=== PATIENT | male | born 1950 | race Caucasian/White ===

== ENCOUNTER 2022-09-15 19:46 | Inpatient (IN) ==
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
[2022-09-15 20:39] LABS: Basophils # (auto) 0.04 K/uL (0-0.2); Basophils % (auto) 0.4 %; Eosinophils # (auto) 0.09 K/uL (0-0.50); Eosinophils % (auto) 0.8 %; Hematocrit (blood only) 35.2 % (42.0-52.0); Hemoglobin 11.5 g/dl (14.0-18.0); Immature Granulocytes # (auto) 0.15 K/uL (0.01-0.20); Immature Granulocytes % (auto) 1.3 %; Lymphocytes # (auto) 0.67 K/uL (1.2-3.4); Mean Corpuscular Hemoglobin 24.7 pg (25.0-34.0); Mean Corpuscular Hgb Conc 32.7 g/dL (32.0-36.0); Mean Corpuscular Volume 75.5 fL (80.0-100.0); Mean Platelet Volume 9.8 fL (9.4-12.4); Monocytes # (auto) 1.02 K/uL (0.11-0.59); Monocytes % (auto) 9.1 %; Neutrophils # (auto) 9.27 K/uL (1.40-6.50); Neutrophils % (auto) 82.4 %; Platelet Count 183 K/uL (130-400); RDW Coefficient of Variation 19.5 % (11.5-14.5); Red Blood Count 4.66 M/uL (4.70-6.10); White Blood Count 11.24 K/ul (4.8-10.8)
[2022-09-15 20:42] LABS: Appearance Urine Clear (Clear); Bilirubin Urine Negative (Negative); Blood Urine Negative (Negative); Color Urine Yellow; Glucose Urine UA 1+ (Negative); Ketones Urine Negative (Negative); Leukocyte Esterase Urine Negative (Negative); Nitrite Urine Negative (Negative); Protein Urine Negative (Negative); Specific Gravity Urine 1.007 (1.000-1.030); Urobilinogen Urine Negative (Negative); pH Urine 7.5 (4.5-7.5)
[2022-09-15 20:53] LABS: Albumin Level 4.1 gm/dl (3.4-5.0); BUN Creatinine Ratio 20.6 (10-20); Bilirubin,Total 1.5 mg/dl (0.2-1.0); Calcium 8.9 mg/dl (8.5-10.1); Creatinine Clr Calc Pharmacy 44.2 ml/min; Est GFR (African American) 44.7 ml/min; Est GFR (Non-African American) 38.6 ml/min; Globulin 4.1 gm/dl (2.5-4.0); Potassium 2.3 mmol/L (3.5-5.1); Total Protein 8.2 gm/dl (6.0-8.3)
--- NOTE | 2022-09-15 20:56 | XRay Report ---
XR chest 1V portable CLINICAL HISTORY: Chest pain. COMPARISON STUDY: No previous studies for comparison. FINDINGS: A left subclavian biventricular pacer/AICD is in place. Status post median sternotomy. Mode rate cardiomegaly. Small right and trace left pleural effusions. There is no pneumothorax. Interstiti al pulmonary edema is noted. Hazy right basilar opacity is present. IMPRESSION: 1. Interstitial pulmonary edema with small right and trace left pleural effusions. Hazy right basilar opacity likely reflects atelectasis. Radiographic follow-up to ensure resolution is recommended. 2. Cardiomegaly. ACT 112: Negative or not required by law. Electronically signed by: Niles West M.D. 09/15/2022 8:54 PM
[2022-09-15] MEDS ORDERED: POTASSIUM CHLORIDE / WTR 10 MEQ/100 ML PLCT IV ONE ×2 (20:57→21:28)
[2022-09-15] MEDS ORDERED: POTASSIUM CHLORIDE CRTAB 20 MEQ TABCR PO STA (20:57)
[2022-09-15] MEDS ORDERED: MAGNESIUM SULFATE / D5W 1 GM/100 ML BAG IV STA (21:16)
[2022-09-15] MEDS ORDERED: MAGNESIUM SULFATE / D5W 1 GM/100 ML BAG IV ONE (21:16)
[2022-09-15] MEDS ORDERED: ASPIRIN CHEW 324 MG PO STA (21:16)
[2022-09-15] MEDS ORDERED: STAT IV Infusion **Titration per Protocol STA (21:38)
[2022-09-15] MEDS ORDERED: 0.2 MICRON FILTER SET 1 EACH IV STA (21:38)
[2022-09-15] MEDS ORDERED: AMIODARONE IV BOLUS & DRIP IV STA (21:38)
[2022-09-15] MEDS ORDERED: AMIODARONE / D5W 150 MG/100 ML BAG IV STA (21:38)
[2022-09-15] MEDS ORDERED: AMIODARONE / D5W 360 MG/200 ML BAG IV ONE (21:48)
[2022-09-15] MEDS ORDERED: POTASSIUM CHLORIDE CRTAB 20 MEQ TABCR PO ONE (22:00)
[2022-09-15 22:05] LABS: Magnesium 2.3 mg/dl (1.7-2.4); Troponin I High Sensitivity 30.8 pg/ml (0-20)
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
[2022-09-15 22:13] LABS: INR 3.2 (0.9-1.1)
[2022-09-15] MEDS ORDERED: GLUCOSE 40% GEL 15 GM TUBE PO PRN (23:29)
[2022-09-15] MEDS ORDERED: CARBOHYDRATES FOR HYPOGLYCEMIA PO PRN (23:29)
[2022-09-15] MEDS ORDERED: GLUCOSE 10 TAB/TUBE PO PRN (23:29)
[2022-09-15] MEDS ORDERED: PROMETHAZINE HCL 12.5 MG in SODIUM CHLORIDE 0.9% 50 ML IV PRN (23:29)
[2022-09-15] MEDS ORDERED: DEXTROSE 50% 50 ML SYRINGE IV PRN (23:29)
[2022-09-15] MEDS ORDERED: HYDROCODONE/ACETAMOPHEN 5/325MG TAB PO PRN (23:29)
[2022-09-15] MEDS ORDERED: GLUCAGON FOR INJ 1 MG VIAL SQ PRN (23:29)
[2022-09-16] MEDS ORDERED: POTASSIUM CHLORIDE CRTAB 20 MEQ TABCR PO ONE
[2022-09-16] MEDS: POTASSIUM CHLORIDE / WTR 10 MEQ/100 ML PLCT IV SCH ×8 (00:06→09:20)
[2022-09-16] MEDS: INSULIN ASPART PER UNIT SC SCH ×5 (00:23→20:13)
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
[2022-09-16] MEDS: ACETAMINOPHEN 325 MG TAB PO PRN ×3 (03:07→20:19)
[2022-09-16] MEDS: AMIODARONE / D5W 360 MG/200 ML BAG IV SCH ×2 (03:58→15:57)
[2022-09-16 04:49] LABS: Basophils # (auto) 0.02 K/uL (0-0.2); Basophils % (auto) 0.2 %; Eosinophils # (auto) 0.02 K/uL (0-0.50); Eosinophils % (auto) 0.2 %; Hematocrit (blood only) 32.6 % (42.0-52.0); Hemoglobin 10.5 g/dl (14.0-18.0); Immature Granulocytes # (auto) 0.09 K/uL (0.01-0.20); Immature Granulocytes % (auto) 0.9 %; Lymphocytes # (auto) 0.76 K/uL (1.2-3.4); Lymphocytes % (auto) 7.3 %; Mean Corpuscular Hemoglobin 24.4 pg (25.0-34.0); Mean Corpuscular Hgb Conc 32.2 g/dL (32.0-36.0); Mean Corpuscular Volume 75.8 fL (80.0-100.0); Mean Platelet Volume 9.9 fL (9.4-12.4); Monocytes # (auto) 0.92 K/uL (0.11-0.59); Monocytes % (auto) 8.8 %; Neutrophils % (auto) 82.6 %; Platelet Count 160 K/uL (130-400); RDW Coefficient of Variation 19.4 % (11.5-14.5); RDW Standard Deviation 52.9 fL (36.4-46.3); White Blood Count 10.41 K/ul (4.8-10.8)
[2022-09-16 05:11] LABS: BUN Creatinine Ratio 18.2 (10-20); Calcium 8.3 mg/dl (8.5-10.1); Creatinine Clr Calc Pharmacy 43.1 ml/min; Est GFR (African American) 44.4 ml/min; Est GFR (Non-African American) 38.3 ml/min; Magnesium 2.5 mg/dl (1.7-2.4); Potassium 3.2 mmol/L (3.5-5.1)
[2022-09-16] MEDS ORDERED: POTASSIUM CHLORIDE 20 MEQ/15 ML UDC PO STA (05:21)
[2022-09-16 05:33] LABS: INR 3.5 (0.9-1.1); Prothrombin Time 34.9 Seconds (9.0-12.0)
[2022-09-16] MEDS: LEVOTHYROXINE SODIUM 100 MCG TABLET PO SCH (05:48)
--- NOTE | 2022-09-16 06:55 | CT Scan Report ---
CT SCAN OF THE BRAIN WITHOUT IV CONTRAST CLINICAL HISTORY: Headache. Seizure. COMPARISON STUDY: No priors. TECHNIQUE: Unenhanced axial CT scan of the brain is performed from the vertex to the skull base. A do se lowering technique was utilized adhering to the principles of ALARA. CT DOSE: 972.49 mGy.cm FINDINGS: Brain parenchyma: There is age-related involutional change noting mild subcortical and periventricula r microangiopathic disease. 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 There is no he morrhage, mass effect, or evidence of acute territorial ischemia by CT criteria. Briones-white matter di fferentiation is preserved. No extra-axial fluid collection is seen. Ventricles, sulci, cisterns: Prominent secondary to involutional change. Intracranial vasculature: There is atherosclerotic calcification of the cavernous carotid and vertebr al arteries. Calvarium: Unremarkable. Sinuses and mastoids: There is mild mucosal thickening in the left maxillary antrum. The remaining pa ranasal sinuses are clear. The mastoid air cells are well pneumatized. Orbits: The bony orbits are grossly intact. There are bilateral ocular lens implants. IMPRESSION: There is no hemorrhage, mass effect, or evidence of acute territorial ischemia by CT rebeca carrion. ACT 112: Negative or not required by law. Electronically signed by: Rolando Mendez M.D. 09/16/2022 6:54 AM
[2022-09-16] MEDS: METOPROLOL SUCC 50MG EXT REL TAB PO SCH (08:15)
[2022-09-16] MEDS: ASPIRIN 81 MG ECTAB PO SCH (08:15)
[2022-09-16] MEDS: POTASSIUM CHLORIDE CRTAB 20 MEQ TABCR PO SCH ×3 (08:15→20:02)
[2022-09-16] MEDS: VALSARTAN/SACUBITRIL 26/24MG TAB PO SCH ×2 (08:16→20:02)
[2022-09-16] MEDS: SPIRONOLACTONE 100 MG TAB PO SCH (08:16)
[2022-09-16] MEDS: LANTUS PER UNIT CHARGE SQ SCH (08:24)
--- NOTE | 2022-09-16 08:30 | Communication Note ---
Date of Service: September 16, 2022 Patient seen and examined. EMR reviewed. Discussed with critical care nurse at bedside as well as on multidisciplinary rounds. Patient reports that he is doing well clinically. He states that he can feel himself passing out before his AICD goes off he is not had any of those episodes since being admitted to the hospital. He feels like he is doing better. He denies chest pain or palpitations. He is getting his electrolytes repleted. Continue amiodarone infusion pending cardiology evaluation. Will defer repeat echocardiogram to them. Volume status appears adequate. He is mildly anemic but does not warrant transfusion at this point in time. He is therapeutically anticoagulated. Kidney function is stable. Magnesium has been repleted and potassium continues to undergo repletion. We will keep in the ICU pending cardiology evaluation. If he continues to do well and able to get his electrolytes repleted, he may be able to downgrade in the next 24 hours An additional 40 minutes was spent in evaluation management and coordinating care on this patient Coding Level of Care Code 54043 Prolonged Care (int'l)
[2022-09-16] MEDS ORDERED: AMIODARONE 200 MG TAB PO SCH (09:00)
[2022-09-16 09:09] LABS: Estimated Average Glucose 154 mg/dl
[2022-09-16 09:54] LABS: Phosphorus 2.6 mg/dl (2.5-4.9)
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
[2022-09-16 12:45] LABS: BUN Creatinine Ratio 17.5 (10-20); Calcium 8.7 mg/dl (8.5-10.1); Creatinine Clr Calc Pharmacy 44.4 ml/min; Est GFR (Non-African American) 39.7 ml/min; Potassium 3.4 mmol/L (3.5-5.1)
--- NOTE | 2022-09-16 13:09 | Hospitalist Progress Note ---
Date of Service September 16, 2022 Assessment & Plan (1) Unresponsive: Plan: Likely secondary to recurrent VF With appropriate ICD shocks Possibly from hypokalemia following increase in diuretic regimen last month following outpatient cardiology visit Troponin elevation secondary to ICD shock in the setting of baseline kidney dysfunction Patient has chronic systolic heart failure secondary to ischemic cardiomyopathy status post CRTD (EF 30-34% TTE 2021), CAD status post CABG/stent/PVD Hypokalemia being aggressively repleted. Continue to hold lasix until hypokalemia is fully repleted Cardiology on board Continue amiodarone for now Continue home entresto, toprol XL Continue home statin Continue ICU care A-fib on Coumadin INR is supratherapeutic today. Hold warfarin today and recheck tomorrow DM2 On insulin at home Suboptimal control as of recent hemoglobin A1c of 13.2 last April 2022 PATIENCE on BiPAP Colon cancer Status post polyp resection Continue follow up with [facility] [place] Hypothyroidism Recent outpatient TSH within normal limits Chronic anemia Hb stable Past tobacco abuse DVT prophylaxis. Coumadin INR goal between 2 and 3 Full code Patient requesting updates from providers. Ms. Sandra Cain, contact #[phone]. reported she is overwhelmed at home as patient requires a lot of help now. Requesting SNF for about a week and HH afterwards CM consulted PT/OT eval Admission and Anticipated Discharge Date Admission Date: September 15, 2022 Subjective Patient seen and examined Reports some neck discomfort on waking up Denied any chest pain at this time Denied palpitation, cough Reports chronic SOB especially with exertion Denied fever, chills, nausea, vomiting,abd pain, diarrhea Physical Exam Constitutional: + well hydrated and + obese; no acute distress Eyes: PERRL, conjunctivae normal, anicteric sclerae ENMT: external ear and nose normal, oropharynx normal Respiratory: normal respiratory effort; no respiratory distress Diminished breath sounds lung bases Cardiovascular: Rate/Rhythm: regular rate and regular rhythm S1 S2 Gastrointestinal (Abdomen): normal bowel sounds, soft, nontender, no hepatosplenomegaly Musculoskeletal: Pedal edema Neurologic: PERRL, EOMI, accommodation nl, no face palsy, no dysarthria Psychiatric: A+Ox3, euthymic affect Results & Data Results & Data ([facility]) Vital Signs (Past 12 Hours) Vital Signs Temp Pulse Resp BP Pulse Ox O2 Del Method O2 Flow Rate 09/16/22 13:00 70 24 128/71 95 Nasal Cannula 2 09/16/22 12:09 36.9 C 09/16/22 12:00 70 31 H 147/88 H 93 Nasal Cannula 2 09/16/22 11:00 70 33 H 144/87 H 95 Nasal Cannula 2 09/16/22 10:00 82 18 150/87 H 91 Nasal Cannula 2 09/16/22 09:00 70 19 143/87 H 93 Nasal Cannula 2 09/16/22 08:00 71 20 147/81 H 94 09/16/22 08:00 37.0 C 09/16/22 08:00 Nasal Cannula 09/16/22 07:00 70 26 H 129/74 93 Nasal Cannula 2 09/16/22 07:47 Nasal Cannula 2 09/16/22 06:00 70 24 126/74 95 Nasal Cannula 2 09/16/22 05:00 71 18 166/89 H 96 Nasal Cannula 2 09/16/22 04:00 36.7 C 70 18 153/84 H 96 Nasal Cannula 2 09/16/22 03:00 70 19 148/92 H 95 Nasal Cannula 2 09/16/22 02:00 70 18 146/80 H 97 Nasal Cannula 2 Laboratory Results Abnormal lab results 09/15/22 09/15/22 09/15/22 Range/Units 19:58 19:58 19:58 WBC 11.24 H (4.8-10.8) K/ul RBC 4.66 L (4.70-6.10) M/uL Hgb 11.5 L (14.0-18.0) g/dl Hct 35.2 L (42.0-52.0) % MCV 75.5 L (80.0-100.0) fL MCH 24.7 L (25.0-34.0) pg RDW Std Deviation 52.0 H (36.4-46.3) fL RDW Coeff of Johny 19.5 H (11.5-14.5) % Neut # (Auto) 9.27 H (1.40-6.50) K/uL Lymph # (Auto) 0.67 L (1.2-3.4) K/uL Dade # (Auto) 1.02 H (0.11-0.59) K/uL PT 32.0 H (9.0-12.0) Seconds INR 3.2 H (0.9-1.1) Sodium 135 L (136-145) mmol/L Potassium 2.3 L* (3.5-5.1) mmol/L Chloride 95 L (98-107) mmol/L BUN 36 H (6-23) mg/dl Creatinine 1.75 H (0.6-1.4) mg/dl BUN/Creatinine Ratio 20.6 H (10-20) Glucose 156 H (70-99(Fasting)) mg/dl POC Glucose (70-99) mg/dl Hemoglobin A1c (4.5-5.6) % Calcium (8.5-10.1) mg/dl Magnesium (1.7-2.4) mg/dl Total Bilirubin 1.5 H (0.2-1.0) mg/dl Alkaline Phosphatase 139 H (34-104) U/L Troponin I High Sens 30.8 H (0-20) pg/ml Globulin 4.1 H (2.5-4.0) gm/dl Urine Glucose (UA) (Negative) 09/15/22 09/15/22 09/16/22 Range/Units 20:30 23:19 00:15 WBC (4.8-10.8) K/ul RBC (4.70-6.10) M/uL Hgb (14.0-18.0) g/dl Hct (42.0-52.0) % MCV (80.0-100.0) fL MCH (25.0-34.0) pg RDW Std Deviation (36.4-46.3) fL RDW Coeff of Johny (11.5-14.5) % Neut # (Auto) (1.40-6.50) K/uL Lymph # (Auto) (1.2-3.4) K/uL Dade # (Auto) (0.11-0.59) K/uL PT (9.0-12.0) Seconds INR (0.9-1.1) Sodium (136-145) mmol/L Potassium (3.5-5.1) mmol/L Chloride (98-107) mmol/L BUN (6-23) mg/dl Creatinine (0.6-1.4) mg/dl BUN/Creatinine Ratio (10-20) Glucose (70-99(Fasting)) mg/dl POC Glucose 216 H (70-99) mg/dl Hemoglobin A1c (4.5-5.6) % Calcium (8.5-10.1) mg/dl Magnesium (1.7-2.4) mg/dl Total Bilirubin (0.2-1.0) mg/dl Alkaline Phosphatase (34-104) U/L Troponin I High Sens 35.2 H (0-20) pg/ml Globulin (2.5-4.0) gm/dl Urine Glucose (UA) 1+ H (Negative) 09/16/22 09/16/22 09/16/22 Range/Units 04:22 04:22 04:22 WBC (4.8-10.8) K/ul RBC 4.30 L (4.70-6.10) M/uL Hgb 10.5 L (14.0-18.0) g/dl Hct 32.6 L (42.0-52.0) % MCV 75.8 L (80.0-100.0) fL MCH 24.4 L (25.0-34.0) pg RDW Std Deviation 52.9 H (36.4-46.3) fL RDW Coeff of Johny 19.4 H (11.5-14.5) % Neut # (Auto) 8.60 H (1.40-6.50) K/uL Lymph # (Auto) 0.76 L (1.2-3.4) K/uL Dade # (Auto) 0.92 H (0.11-0.59) K/uL PT 34.9 H (9.0-12.0) Seconds INR 3.5 H (0.9-1.1) Sodium 135 L (136-145) mmol/L Potassium 3.2 L D (3.5-5.1) mmol/L Chloride 96 L (98-107) mmol/L BUN 32 H (6-23) mg/dl Creatinine 1.76 H (0.6-1.4) mg/dl BUN/Creatinine Ratio (10-20) Glucose 175 H (70-99(Fasting)) mg/dl POC Glucose (70-99) mg/dl Hemoglobin A1c (4.5-5.6) % Calcium 8.3 L (8.5-10.1) mg/dl Magnesium 2.5 H (1.7-2.4) mg/dl Total Bilirubin (0.2-1.0) mg/dl Alkaline Phosphatase (34-104) U/L Troponin I High Sens (0-20) pg/ml Globulin (2.5-4.0) gm/dl Urine Glucose (UA) (Negative) 09/16/22 09/16/22 09/16/22 Range/Units 04:22 04:22 07:24 WBC (4.8-10.8) K/ul RBC (4.70-6.10) M/uL Hgb (14.0-18.0) g/dl Hct (42.0-52.0) % MCV (80.0-100.0) fL MCH (25.0-34.0) pg RDW Std Deviation (36.4-46.3) fL RDW Coeff of Johny (11.5-14.5) % Neut # (Auto) (1.40-6.50) K/uL Lymph # (Auto) (1.2-3.4) K/uL Dade # (Auto) (0.11-0.59) K/uL PT (9.0-12.0) Seconds INR (0.9-1.1) Sodium (136-145) mmol/L Potassium (3.5-5.1) mmol/L Chloride (98-107) mmol/L BUN (6-23) mg/dl Creatinine (0.6-1.4) mg/dl BUN/Creatinine Ratio (10-20) Glucose (70-99(Fasting)) mg/dl POC Glucose 171 H (70-99) mg/dl Hemoglobin A1c 7.0 H (4.5-5.6) % Calcium (8.5-10.1) mg/dl Magnesium (1.7-2.4) mg/dl Total Bilirubin (0.2-1.0) mg/dl Alkaline Phosphatase (34-104) U/L Troponin I High Sens 48.0 H D (0-20) pg/ml Globulin (2.5-4.0) gm/dl Urine Glucose (UA) (Negative) 09/16/22 09/16/22 Range/Units 11:27 11:57 WBC (4.8-10.8) K/ul RBC (4.70-6.10) M/uL Hgb (14.0-18.0) g/dl Hct (42.0-52.0) % MCV (80.0-100.0) fL MCH (25.0-34.0) pg RDW Std Deviation (36.4-46.3) fL RDW Coeff of Johny (11.5-14.5) % Neut # (Auto) (1.40-6.50) K/uL Lymph # (Auto) (1.2-3.4) K/uL Dade # (Auto) (0.11-0.59) K/uL PT (9.0-12.0) Seconds INR (0.9-1.1) Sodium 130 L (136-145) mmol/L Potassium 3.4 L (3.5-5.1) mmol/L Chloride 93 L (98-107) mmol/L BUN 30 H (6-23) mg/dl Creatinine 1.71 H (0.6-1.4) mg/dl BUN/Creatinine Ratio (10-20) Glucose 258 H (70-99(Fasting)) mg/dl POC Glucose 251 H (70-99) mg/dl Hemoglobin A1c (4.5-5.6) % Calcium (8.5-10.1) mg/dl Magnesium (1.7-2.4) mg/dl Total Bilirubin (0.2-1.0) mg/dl Alkaline Phosphatase (34-104) U/L Troponin I High Sens (0-20) pg/ml Globulin (2.5-4.0) gm/dl Urine Glucose (UA) (Negative)
[2022-09-16 16:43] LABS: Calcium 8.8 mg/dl (8.5-10.1); Potassium 3.6 mmol/L (3.5-5.1)
[2022-09-16 16:48] LABS: BUN Creatinine Ratio 18.8 (10-20); Creatinine Clr Calc Pharmacy 44.6 ml/min; Est GFR (African American) 46.3 ml/min
[2022-09-16] MEDS ORDERED: BUMETANIDE 2 MG in SYRINGE 0 ML IV ONE (18:30)
[2022-09-16] MEDS: ATORVASTATIN 40 MG TAB PO SCH (20:02)
[2022-09-16] MEDS: traZODone HCL 50 MG TAB PO SCH (20:02)
--- NOTE | 2022-09-16 22:12 | Electrocardiogram Report ---
Test Reason : Blood Pressure : / mmHG Vent. Rate : 089 BPM Atrial Rate : 093 BPM P-R Int : 000 ms QRS Dur : 194 ms QT Int : 442 ms P-R-T Axes : 000 240 042 degrees QTc Int : 537 ms Ventricular-paced rhythm Biventricular pacemaker detected Abnormal ECG No previous ECGs available Confirmed by Brett Mills ([id number]) on 09/16/2022 10:12:02 PM Referred By: REFERRED SELF Confirmed By:Brett Mills
--- NOTE | 2022-09-16 22:24 | Electrocardiogram Report ---
Test Reason : Blood Pressure : / mmHG Vent. Rate : 070 BPM Atrial Rate : 073 BPM P-R Int : 000 ms QRS Dur : 192 ms QT Int : 474 ms P-R-T Axes : 000 262 045 degrees QTc Int : 511 ms Ventricular-paced rhythm Biventricular pacemaker detected Abnormal ECG When compared with ECG of 15-SEP-2022 20:05, Vent. rate has decreased BY 19 BPM Confirmed by Brett Mills ([id number]) on 09/16/2022 10:23:43 PM Referred By: REFERRED SELF Confirmed By:Brett Mills
[2022-09-17] MEDS: AMIODARONE / D5W 360 MG/200 ML BAG IV SCH (02:36)
[2022-09-17] MEDS: LEVOTHYROXINE SODIUM 100 MCG TABLET PO SCH (05:09)
[2022-09-17 06:31] LABS: Hematocrit (blood only) 33.4 % (42.0-52.0); Hemoglobin 10.6 g/dl (14.0-18.0); Mean Corpuscular Hemoglobin 24.4 pg (25.0-34.0); Mean Corpuscular Hgb Conc 31.7 g/dL (32.0-36.0); Mean Corpuscular Volume 76.8 fL (80.0-100.0); Mean Platelet Volume 9.5 fL (9.4-12.4); Platelet Count 160 K/uL (130-400); RDW Coefficient of Variation 19.4 % (11.5-14.5); RDW Standard Deviation 53.4 fL (36.4-46.3); Red Blood Count 4.35 M/uL (4.70-6.10); White Blood Count 11.05 K/ul (4.8-10.8)
[2022-09-17 07:03] LABS: INR 4.3 (0.9-1.1)
[2022-09-17 07:14] LABS: Anion Gap 12 (3-11); BUN Creatinine Ratio 18.9 (10-20); Blood Urea Nitrogen 35 mg/dl (6-23); Calcium 8.4 mg/dl (8.5-10.1); Carbon Dioxide 24 mmol/L (21-32); Chloride 95 mmol/L (98-107); Creatinine Clr Calc Pharmacy 40.8 ml/min; Est GFR (African American) 41.8 ml/min; Est GFR (Non-African American) 36.1 ml/min; Glucose 190 mg/dl (70-99(Fasting)); Magnesium 2.4 mg/dl (1.7-2.4); Sodium 131 mmol/L (136-145)
--- NOTE | 2022-09-17 08:16 | Critical Care Progress Note ---
Date of Service September 17, 2022 Assessment & Plan (1) Paroxysmal ventricular fibrillation: Plan: Impression: 72-year-old male with a and extensive cardiac history presents to the ICU following syncopal event with ventricular fibrillation which was ca rdioverted with AICD. Patient found to be significantly hypokalemic which is being repleted and is now being admitted to ICU with amnio drip for close monitoring and further management. 24-hour events: Cardiology consultation echocardiogram completed without significant change. Continued on amiodarone. No persistent events. Persistently hypokalemic and now hypophosphatemic. Additional diuretics administered. Recommendations: Neuro -syncopal event likely secondary to ventricular tachycardia. Now resolved. No sequelae. Cardiac -ventricular fibrillation likely precipitated by electrolyte abnormalities. QTc is prolonged. He is paced. Appreciate cardiology consultation. He is completed 24 hours of IV amiodarone in addition to his p.o. amiodarone. We will discontinue IV amiodarone and increase p.o. amiodarone to 400 mg daily with additional recommendations per cardiology. Class II-III heart failure. Echo unchanged. May be slightly hypervolemic. Judicious diuretics with strict attention to kidney function. No evidence of ischemia. Continue long-term anticoagulation with Coumadin. Respiratory -hypoxemia likely secondary to mild vascular congestion. Wean as tolerated. Incentive spirometry and out of bed to chair as tolerated GI - Diabetic diet RENAL/LYTES -continued fairly profound hypokalemia. Magnesium has been repleted. He is hypophosphatemic now. We will continue oral and IV repletion. Follow kidney function with diuresis - Strict I's and O's ENDO - glycemic control per protocol ID - No indication for impression process at this time LINES/IV ACCESS - Peripheral IVs DVT PROPHYLAXIS - SCDs, systemically anticoagulated on Coumadin We will need PT evaluations. Increase activity to out of bed to chair as tolerated. The patient's critical care issues appear to have resolved at this point time. Think he can transfer out of the ICU to telemetry. Critical care will sign off. Feel free to contact us if we can be of additional assistance Patient was discussed with the bedside nurse as well as on multidisciplinary rounds. (2) Syncope: (3) Elevated troponin: (4) Acute hypokalemia: (5) CHF (congestive heart failure): (6) CAD (coronary artery disease): (7) Atrial fibrillation: Admission and Anticipated Discharge Date Admission Date: September 15, 2022 Subjective Patient seen and examined. EMR reviewed. The patient had an uneventful night. He has not had any additional syncopal episodes or altered levels of consciousness. No chest pain or palpitations. No defibrillator shocks. He states he is feeling much better. He denies any shortness of breath. He is tolerating a diet. No new complaints Review of Systems Review of Systems: All systems reviewed & are unremarkable except as noted in Subjective Physical Exam Constitutional: + well hydrated and + obese; no acute distress Respiratory: normal respiratory effort; no respiratory distress Diminished breath sounds lung bases Cardiovascular: Rate/Rhythm: regular rate and regular rhythm Paced S1 S2 Gastrointestinal (Abdomen): normal bowel sounds, soft, nontender, no hepatosplenomegaly Musculoskeletal: Pedal edema Psychiatric: A+Ox3, euthymic affect Results & Data Results & Data ([facility]) Vital Signs (Past 12 Hours) Vital Signs Temp Pulse Pulse Resp BP BP Pulse Ox 09/17/22 06:00 70 24 134/71 91 09/17/22 05:00 80 23 136/71 92 09/17/22 04:00 37.2 C 70 24 140/69 91 09/17/22 03:00 70 20 110/55 L 94 09/17/22 02:00 71 21 143/90 H 96 09/17/22 01:00 70 19 112/52 L 92 09/17/22 00:00 37.3 C 70 24 124/60 95 09/16/22 23:00 70 15 123/72 96 09/16/22 22:00 70 16 117/67 95 09/16/22 21:00 70 24 137/81 95 O2 Del Method O2 Flow Rate 09/17/22 06:00 Nasal Cannula 2 09/17/22 05:00 Nasal Cannula 2 09/17/22 04:00 Nasal Cannula 2 09/17/22 03:00 Nasal Cannula 2 09/17/22 02:00 Nasal Cannula 2 09/17/22 01:00 Nasal Cannula 2 09/17/22 00:00 Nasal Cannula 2 09/16/22 23:00 Nasal Cannula 2 09/16/22 22:00 Nasal Cannula 2 09/16/22 21:00 CPAP 2 Critical Care Results & Data Vital Signs (Past 12 Hours) Vital Signs Temp Pulse Pulse Resp BP BP Pulse Ox 09/17/22 06:00 70 24 134/71 91 09/17/22 05:00 80 23 136/71 92 09/17/22 04:00 37.2 C 70 24 140/69 91 09/17/22 03:00 70 20 110/55 L 94 09/17/22 02:00 71 21 143/90 H 96 09/17/22 01:00 70 19 112/52 L 92 09/17/22 00:00 37.3 C 70 24 124/60 95 09/16/22 23:00 70 15 123/72 96 09/16/22 22:00 70 16 117/67 95 09/16/22 21:00 70 24 137/81 95 O2 Del Method O2 Flow Rate 09/17/22 06:00 Nasal Cannula 2 09/17/22 05:00 Nasal Cannula 2 09/17/22 04:00 Nasal Cannula 2 09/17/22 03:00 Nasal Cannula 2 09/17/22 02:00 Nasal Cannula 2 09/17/22 01:00 Nasal Cannula 2 09/17/22 00:00 Nasal Cannula 2 09/16/22 23:00 Nasal Cannula 2 09/16/22 22:00 Nasal Cannula 2 09/16/22 21:00 CPAP 2 Lab & Micro Results (Past 24 Hours) RBC 4.35 M/uL (4.70-6.10) L 09/17/22 WBC 11.05 K/ul (4.8-10.8) H 09/17/22 Hgb 10.6 g/dl (14.0-18.0) L 09/17/22 Hct 33.4 % (42.0-52.0) L 09/17/22 MCV 76.8 fL (80.0-100.0) L 09/17/22 MCH 24.4 pg (25.0-34.0) L 09/17/22 MCHC 31.7 g/dL (32.0-36.0) L 09/17/22 RDW Standard Deviation 53.4 fL (36.4-46.3) H 09/17/22 RDW Coefficient of Variation 19.4 % (11.5-14.5) H 09/17/22 Plt Count 160 K/uL (130-400) 09/17/22 MPV 9.5 fL (9.4-12.4) 09/17/22 Na 131 mmol/L (136-145) L 09/17/22 K 2.6 mmol/L (3.5-5.1) L 09/17/22 Cl 95 mmol/L (98-107) L 09/17/22 CO2 24 mmol/L (21-32) 09/17/22 Anion Gap 12 (3-11) H 09/17/22 BUN 35 mg/dl (6-23) H 09/17/22 Creatinine 1.85 mg/dl (0.6-1.4) H 09/17/22 Estimated GFR ( Amer) 41.8 ml/min 09/17/22 Estimated GFR (Non-Af Amer) 36.1 ml/min 09/17/22 BUN/Creatinine Ratio 18.9 (10-20) 09/17/22 Glu 190 mg/dl (70-99(Fasting)) H 09/17/22 Ca 8.4 mg/dl (8.5-10.1) L 09/17/22 Phosphorus Level 2.0 mg/dl (2.5-4.9) L 09/17/22 Mg 2.4 mg/dl (1.7-2.4) 09/17/22 05:31 Calcium Level 8.4 mg/dl (8.5-10.1) L 09/17/22 05:31 Prothromb Time International Ratio 4.3 (0.9-1.1) H 09/17/22 05 :31 I & O Totals 24 Hours 09/16/22 09/17/22 09/18/22 06:59 06:59 06:59 Intake Total 1450 / 1450 2517.855 / 2517.855 Output Total 1175 / 1175 3476 / 3476 Balance 275 / 275 -958.145 / -958.145 Cumulative 09/15/22 19:03 thru 09/17/22 06:37 Intake Total 3967.855 Output Total 4651 Balance -683.145 RT Ventilator Mngmt (Last Documented) Ventilator Ordered Settings Respiratory Rate 24 09/17/22 06:00 Fraction of Inspired Oxygen 25 09/16/22 01:00 Ventilator - PT Measurements Respiratory Rate 24 Coding Level of Care Code 88881 SUB INP/OBS CARE 3/50MIN Diagnoses Paroxysmal ventricular fibrillation I49.01 Syncope R55 Elevated troponin R77.8 Acute hypokalemia E87.6 CHF (congestive heart failure) I50.9 CAD (coronary artery disease) I25.10 Atrial fibrillation I48.91
[2022-09-17] MEDS: METOPROLOL SUCC 50MG EXT REL TAB PO SCH (08:42)
[2022-09-17] MEDS: POTASSIUM CHLORIDE CRTAB 20 MEQ TABCR PO SCH ×4 (08:42→20:54)
[2022-09-17] MEDS: ASPIRIN 81 MG ECTAB PO SCH (08:42)
[2022-09-17] MEDS: SPIRONOLACTONE 100 MG TAB PO SCH (08:43)
[2022-09-17] MEDS: VALSARTAN/SACUBITRIL 26/24MG TAB PO SCH ×2 (08:43→20:54)
[2022-09-17] MEDS: LANTUS PER UNIT CHARGE SQ SCH (08:48)
[2022-09-17] MEDS: INSULIN ASPART PER UNIT SC SCH ×4 (08:48→20:55)
[2022-09-17] MEDS: POT PHOSPHATE MONOBASIC W/ SOD TAB PO SCH ×4 (08:52→20:54)
[2022-09-17] MEDS: POTASSIUM CHLORIDE / WTR 10 MEQ/100 ML PLCT IV SCH ×3 (08:54→11:00)
[2022-09-17] MEDS ORDERED: POTASSIUM CHLORIDE 20 MEQ/15 ML UDC PO SCH (09:00)
[2022-09-17] MEDS ORDERED: AMIODARONE 200 MG TAB PO SCH (09:00)
[2022-09-17] MEDS ORDERED: LANTUS PER UNIT CHARGE SQ ONE (10:00)
--- NOTE | 2022-09-17 10:07 | Electrocardiogram Report ---
Test Reason : Blood Pressure : / mmHG Vent. Rate : 071 BPM Atrial Rate : 072 BPM P-R Int : 000 ms QRS Dur : 200 ms QT Int : 538 ms P-R-T Axes : 000 267 028 degrees QTc Int : 584 ms Ventricular-paced rhythm Biventricular pacemaker detected Abnormal ECG When compared with ECG of 16-SEP-2022 05:57, No significant change was found Confirmed by Cordell Tanner ([id number]) on 09/17/2022 10:07:15 AM Referred By: REFERRED SELF Confirmed By:Aris Tanner
--- NOTE | 2022-09-17 11:58 | Hospitalist Progress Note ---
Date of Service September 17, 2022 Assessment & Plan (1) Unresponsive: Plan: Likely secondary to recurrent VF With appropriate ICD shocks Possibly from hypokalemia following increase in diuretic regimen last month following outpatient cardiology visit Troponin elevation secondary to ICD shock in the setting of baseline kidney dysfunction Patient has chronic systolic heart failure secondary to ischemic cardiomyopathy status post CRTD (EF 30-34% TTE 2021), CAD status post CABG/stent/PVD Continues to have hypokalemia 2.6 today Continue aggressive repletion. Continue to hold lasix until hypokalemia is fully repleted Also hypophosphatemia today. Being repleted Monitor electrolytes Cardiology on board Amiodarone has been transitioned from IV to po Continue home entresto, toprol XL Continue home statin Continue ICU care A-fib on Coumadin INR remains supratherapeutic 4.3 today Continues to hold warfarin and monitor DM2 On insulin at home Suboptimal control as of recent hemoglobin A1c of 13.2 last April 2022 PATIENCE on BiPAP Colon cancer Status post polyp resection [place] [facility] [place] Hypothyroidism Recent outpatient TSH within normal limits Chronic anemia Hb stable Past tobacco abuse DVT prophylaxis. Coumadin on hold for now as above Full code Patient requesting updates from providers. [place] Sandra Cain, contact #[phone]. CM working on placement per patient and 's request Transfer from ICU to PCU Admission and Anticipated Discharge Date Admission Date: September 15, 2022 Subjective Patient seen and examined Reports feeling better today Denied any chest pain, palpitation, cough Has chronic exertional dyspnea Denied fever, chills, nausea, vomiting, abd pain, diarrhea Denied dysuria, freq, urgency Physical Exam Constitutional: + well hydrated and + obese; no acute distress Eyes: PERRL, conjunctivae normal, anicteric sclerae ENMT: external ear and nose normal, oropharynx normal Respiratory: normal respiratory effort; no respiratory distress Diminished breath sounds lung bases Cardiovascular: Rate/Rhythm: regular rate and regular rhythm S1 S2 Gastrointestinal (Abdomen): normal bowel sounds, soft, nontender, no hepatosplenomegaly Musculoskeletal: +pedal edema Neurologic: PERRL, EOMI, accommodation nl, no face palsy, no dysarthria Psychiatric: A+Ox3, euthymic affect Results & Data Results & Data ([facility]) Vital Signs (Past 12 Hours) Vital Signs Temp Pulse Pulse Resp BP BP Pulse Ox 09/17/22 11:45 37 C 09/17/22 06:00 70 24 134/71 91 09/17/22 05:00 80 23 136/71 92 09/17/22 04:00 37.2 C 70 24 140/69 91 09/17/22 03:00 70 20 110/55 L 94 09/17/22 02:00 71 21 143/90 H 96 09/17/22 01:00 70 19 112/52 L 92 09/17/22 00:00 37.3 C 70 24 124/60 95 O2 Del Method O2 Flow Rate 09/17/22 11:45 09/17/22 06:00 Nasal Cannula 2 09/17/22 05:00 Nasal Cannula 2 09/17/22 04:00 Nasal Cannula 2 09/17/22 03:00 Nasal Cannula 2 09/17/22 02:00 Nasal Cannula 2 09/17/22 01:00 Nasal Cannula 2 09/17/22 00:00 Nasal Cannula 2 Laboratory Results Abnormal lab results 09/16/22 09/16/22 09/16/22 Range/Units 16:03 16:11 20:08 WBC (4.8-10.8) K/ul RBC (4.70-6.10) M/uL Hgb (14.0-18.0) g/dl Hct (42.0-52.0) % MCV (80.0-100.0) fL MCH (25.0-34.0) pg MCHC (32.0-36.0) g/dL RDW Std Deviation (36.4-46.3) fL RDW Coeff of Johny (11.5-14.5) % PT (9.0-12.0) Seconds INR (0.9-1.1) Sodium 132 L (136-145) mmol/L Potassium (3.5-5.1) mmol/L Chloride 97 L (98-107) mmol/L Anion Gap (3-11) BUN 32 H (6-23) mg/dl Creatinine 1.70 H (0.6-1.4) mg/dl Glucose 208 H (70-99(Fasting)) mg/dl POC Glucose 211 H 258 H (70-99) mg/dl Calcium (8.5-10.1) mg/dl Phosphorus (2.5-4.9) mg/dl 09/17/22 09/17/22 09/17/22 Range/Units 05:31 05:31 05:31 WBC 11.05 H (4.8-10.8) K/ul RBC 4.35 L (4.70-6.10) M/uL Hgb 10.6 L (14.0-18.0) g/dl Hct 33.4 L (42.0-52.0) % MCV 76.8 L (80.0-100.0) fL MCH 24.4 L (25.0-34.0) pg MCHC 31.7 L (32.0-36.0) g/dL RDW Std Deviation 53.4 H (36.4-46.3) fL RDW Coeff of Johny 19.4 H (11.5-14.5) % PT 42.0 H (9.0-12.0) Seconds INR 4.3 H (0.9-1.1) Sodium 131 L (136-145) mmol/L Potassium (3.5-5.1) mmol/L Chloride 95 L (98-107) mmol/L Anion Gap 12 H (3-11) BUN 35 H (6-23) mg/dl Creatinine 1.85 H (0.6-1.4) mg/dl Glucose 190 H (70-99(Fasting)) mg/dl POC Glucose (70-99) mg/dl Calcium 8.4 L (8.5-10.1) mg/dl Phosphorus 2.0 L (2.5-4.9) mg/dl 09/17/22 09/17/22 09/17/22 Range/Units 07:18 07:37 11:03 WBC (4.8-10.8) K/ul RBC (4.70-6.10) M/uL Hgb (14.0-18.0) g/dl Hct (42.0-52.0) % MCV (80.0-100.0) fL MCH (25.0-34.0) pg MCHC (32.0-36.0) g/dL RDW Std Deviation (36.4-46.3) fL RDW Coeff of Johny (11.5-14.5) % PT (9.0-12.0) Seconds INR (0.9-1.1) Sodium (136-145) mmol/L Potassium 2.6 L D (3.5-5.1) mmol/L Chloride (98-107) mmol/L Anion Gap (3-11) BUN (6-23) mg/dl Creatinine (0.6-1.4) mg/dl Glucose (70-99(Fasting)) mg/dl POC Glucose 202 H 289 H (70-99) mg/dl Calcium (8.5-10.1) mg/dl Phosphorus (2.5-4.9) mg/dl
--- NOTE | 2022-09-17 13:25 | Cardiology Progress Note ---
Date of Service September 17, 2022 Assessment & Plan (1) Paroxysmal ventricular fibrillation: (2) CHF (congestive heart failure): (3) Implantable cardioverter-defibrillator discharge: (4) Ischemic cardiomyopathy: Plan Patient is a complex 72-year-old male with underlying history of ischemic cardiomyopathy with moderate left dysfunction, class 3+ congestive heart failure on appropriate medical therapies including metoprolol succinate, Entresto, diuretics Prior history of ventricular fibrillation with indwelling pacer defibrillator on chronic amiodarone therapy Presents now with VT VF with appropriate device activation and return to baseline rhythm Possibly precipitated by hypokalemia and mild congestive heart failure Plan: Continue IV amiodarone additional 24 hours Continue to supplement potassium and when repleted resume diuretics We will formally review pacer defibrillator interrogation, optimize device function Echocardiogram without significant change from prior studies that we will review formally troponin likely elevated secondary to acute arrhythmia on presentation 09/17/2022 Clinically improved. No further arrhythmias We will transition amiodarone to oral 400 mg twice per day Supplement potassium with patient with high potassium demand Following review of TSH and BMP will reinitiate Bumex at lower dosing. Repeat chest x-ray in a.m. Admission and Anticipated Discharge Date Admission Date: September 15, 2022 Subjective Patient was seen and examined, chart, medications, telemetry reviewed. No acute complaints this morning. No further arrhythmias on telemetry no defibrillator activation Device interrogations performed yesterday with normal functioning device Review of Systems Review of Systems: All systems reviewed & are unremarkable except as noted in Subjective Physical Exam Constitutional: + obese; no acute distress Eyes: PERRL, conjunctivae normal, anicteric sclerae ENMT: external ear and nose normal, oropharynx normal Neck: trachea midline, no thyromegaly Respiratory: Auscultation: + diminished lung sounds (Right base) Cardiovascular: Rate/Rhythm: regular rate and regular rhythm (Ventricular paced) Heart Sounds: normal S1 and normal S2; no murmur Vessels: + JVD Extremities: + edema Chest (Breasts): Chest: + pacemaker Gastrointestinal (Abdomen): normal bowel sounds, soft, nontender, no hepatosplenomegaly Musculoskeletal: no cyanosis or clubbing, extremities motor strength 5/5 Results & Data ([facility]) Vital Signs (Past 12 Hours) Vital Signs Temp Pulse Pulse Resp BP BP Pulse Ox 09/17/22 11:45 37 C 09/17/22 06:00 70 24 134/71 91 09/17/22 05:00 80 23 136/71 92 09/17/22 04:00 37.2 C 70 24 140/69 91 09/17/22 03:00 70 20 110/55 L 94 09/17/22 02:00 71 21 143/90 H 96 O2 Del Method O2 Flow Rate 09/17/22 11:45 09/17/22 06:00 Nasal Cannula 2 09/17/22 05:00 Nasal Cannula 2 09/17/22 04:00 Nasal Cannula 2 09/17/22 03:00 Nasal Cannula 2 09/17/22 02:00 Nasal Cannula 2 Laboratory Results Laboratory Results - last 24 hr 09/15/22 09/16/22 09/16/22 19:58 16:03 16:11 WBC RBC Hgb Hct MCV MCH MCHC RDW Std Deviation RDW Coeff of Johny Plt Count MPV PT INR Sodium 132 L Potassium 3.6 Chloride 97 L Carbon Dioxide 24 Anion Gap 11 BUN 32 H Creatinine 1.70 H Est Cr Clr Drug Dosing 44.6 Est GFR ( Amer) 46.3 Est GFR (Non-Af Amer) 40.0 BUN/Creatinine Ratio 18.8 Glucose 208 H POC Glucose 211 H Calcium 8.8 Phosphorus Magnesium Hepatitis C Ab (EIA) NON-REACTIVE Hep C Ab Signal/Cutoff 0.04 09/16/22 09/17/22 09/17/22 20:08 05:31 05:31 WBC RBC Hgb Hct MCV MCH MCHC RDW Std Deviation RDW Coeff of Johny Plt Count MPV PT 42.0 H INR 4.3 H Sodium 131 L Potassium TNP Chloride 95 L Carbon Dioxide 24 Anion Gap 12 H BUN 35 H Creatinine 1.85 H Est Cr Clr Drug Dosing 40.8 Est GFR ( Amer) 41.8 Est GFR (Non-Af Amer) 36.1 BUN/Creatinine Ratio 18.9 Glucose 190 H POC Glucose 258 H Calcium 8.4 L Phosphorus 2.0 L Magnesium 2.4 Hepatitis C Ab (EIA) Hep C Ab Signal/Cutoff 09/17/22 09/17/22 09/17/22 05:31 07:18 07:37 WBC 11.05 H RBC 4.35 L Hgb 10.6 L Hct 33.4 L MCV 76.8 L MCH 24.4 L MCHC 31.7 L RDW Std Deviation 53.4 H RDW Coeff of Johny 19.4 H Plt Count 160 MPV 9.5 PT INR Sodium Potassium 2.6 L D Chloride Carbon Dioxide Anion Gap BUN Creatinine Est Cr Clr Drug Dosing Est GFR ( Amer) Est GFR (Non-Af Amer) BUN/Creatinine Ratio Glucose POC Glucose 202 H Calcium Phosphorus Magnesium Hepatitis C Ab (EIA) Hep C Ab Signal/Cutoff 09/17/22 11:03 WBC RBC Hgb Hct MCV MCH MCHC RDW Std Deviation RDW Coeff of Johny Plt Count MPV PT INR Sodium Potassium Chloride Carbon Dioxide Anion Gap BUN Creatinine Est Cr Clr Drug Dosing Est GFR ( Amer) Est GFR (Non-Af Amer) BUN/Creatinine Ratio Glucose POC Glucose 289 H Calcium Phosphorus Magnesium Hepatitis C Ab (EIA) Hep C Ab Signal/Cutoff
[2022-09-17 14:48] LABS: Calcium 8.4 mg/dl (8.5-10.1); Creatinine Clr Calc Pharmacy 36.7 ml/min; Est GFR (African American) 36.7 ml/min; Est GFR (Non-African American) 31.7 ml/min; Potassium 3.2 mmol/L (3.5-5.1)
[2022-09-17] MEDS: ATORVASTATIN 40 MG TAB PO SCH (20:53)
[2022-09-17] MEDS: AMIODARONE 200 MG TAB PO SCH (20:53)
[2022-09-17] MEDS: traZODone HCL 50 MG TAB PO SCH (20:57)
[2022-09-18] MEDS: ACETAMINOPHEN 325 MG TAB PO PRN (02:58)
[2022-09-18] MEDS: LEVOTHYROXINE SODIUM 100 MCG TABLET PO SCH (05:52)
[2022-09-18 06:23] LABS: INR 2.9 (0.9-1.1); Prothrombin Time 29.6 Seconds (9.0-12.0)
[2022-09-18 06:42] LABS: Albumin Level 3.6 gm/dl (3.4-5.0); BUN Creatinine Ratio 24.3 (10-20); Bilirubin,Total 1.3 mg/dl (0.2-1.0); Calcium 8.1 mg/dl (8.5-10.1); Creatinine Clr Calc Pharmacy 35.3 ml/min; Est GFR (African American) 35.1 ml/min; Est GFR (Non-African American) 30.3 ml/min; Globulin 3.6 gm/dl (2.5-4.0); Magnesium 2.4 mg/dl (1.7-2.4); Phosphorus 4.2 mg/dl (2.5-4.9); Potassium 3.1 mmol/L (3.5-5.1); Total Protein 7.2 gm/dl (6.0-8.3)
[2022-09-18] MEDS: VALSARTAN/SACUBITRIL 26/24MG TAB PO SCH ×2 (08:57→20:40)
[2022-09-18] MEDS: POTASSIUM CHLORIDE CRTAB 20 MEQ TABCR PO SCH ×4 (08:57→20:39)
[2022-09-18] MEDS: AMIODARONE 200 MG TAB PO SCH ×2 (08:58→20:38)
[2022-09-18] MEDS: ASPIRIN 81 MG ECTAB PO SCH (08:58)
[2022-09-18] MEDS: METOPROLOL SUCC 50MG EXT REL TAB PO SCH (08:58)
[2022-09-18] MEDS: SERTRALINE HCL 100 MG TABLET PO SCH (08:58)
[2022-09-18] MEDS: SPIRONOLACTONE 100 MG TAB PO SCH (08:58)
[2022-09-18] MEDS: INSULIN ASPART PER UNIT SC SCH ×4 (09:01→20:40)
[2022-09-18] MEDS: LANTUS PER UNIT CHARGE SQ SCH (09:02)
--- NOTE | 2022-09-18 11:10 | XRay Report ---
XR chest 1V portable CLINICAL HISTORY: Reassess lungs COMPARISON STUDY: Chest radiograph September 15, 2022. FINDINGS: A left subclavian biventricular pacer/AICD is in place. There are median sternotomy wires. Cardiomegaly is again noted. There is no pneumothorax. Small right and trace left pleural effusions a re similar to prior exam. Associated right basilar opacity is unchanged. There has been no change in pulmonary edema. IMPRESSION: Cardiomegaly. No change in interstitial pulmonary edema with small right and trace left p leural effusion. ACT 112: Negative or not required by law. Electronically signed by: Niles West M.D. 09/18/2022 11:09 AM
[2022-09-18] MEDS: FAMOTIDINE 20 MG TAB PO SCH (11:28)
--- NOTE | 2022-09-18 11:37 | Hospitalist Progress Note ---
Date of Service September 18, 2022 Assessment & Plan (1) Unresponsive: Plan: Likely secondary to recurrent VF With appropriate ICD shocks Possibly from hypokalemia following increase in diuretic regimen last month following outpatient cardiology visit Troponin elevation secondary to ICD shock in the setting of baseline kidney dysfunction Patient has chronic systolic heart failure secondary to ischemic cardiomyopathy status post CRTD (EF 30-34% TTE 2021), CAD status post CABG/stent/PVD Continues to have hypokalemia 3.1 today Continue aggressive repletion. Give additional Potassium. Continue po ptassium 40 TID Continue to hold home diuretic until hypokalemia is fully repleted Monitor electrolytes Cardiology on board Amiodarone has been transitioned from IV to po Continue home entresto, toprol XL Continue home statin Continue ICU care A-fib on Coumadin INR is therapeutic 2.9 today Resume warfarin at lower dose 2.5mg daily and monitor DM2 On insulin at home Suboptimal control as of recent hemoglobin A1c of 13.2 last April 2022 PATIENCE on BiPAP Colon cancer Status post polyp resection Continue follow up with [facility] oncologist Hypothyroidism Recent outpatient TSH within normal limits Chronic anemia Hb stable Past tobacco abuse DVT prophylaxis. Coumadin Full code Patient requesting updates from providers. Ms. Sandra Cain, contact #[phone]. CM working on placement per patient and 's request Admission and Anticipated Discharge Date Admission Date: September 15, 2022 Subjective Patient seen and examined Denied any chest pain, palpitation, cough Reports only chronic exertional dyspnea Denied fever, chills, nausea, vomiting, abd pain, diarrhea Denied dysuria, freq, urgency Physical Exam Constitutional: + well hydrated and + obese; no acute distress Eyes: PERRL, conjunctivae normal, anicteric sclerae ENMT: external ear and nose normal, oropharynx normal Respiratory: normal respiratory effort; no respiratory distress Diminished breath sounds Cardiovascular: Rate/Rhythm: regular rate and regular rhythm S1 S2 Gastrointestinal (Abdomen): normal bowel sounds, soft, nontender, no hepatosplenomegaly Musculoskeletal: +pedal edema Neurologic: PERRL, EOMI, accommodation nl, no face palsy, no dysarthria Psychiatric: A+Ox3, euthymic affect Results & Data Results & Data ([facility]) Vital Signs (Past 12 Hours) Vital Signs Temp Pulse Resp BP Pulse Ox O2 Del Method O2 Flow Rate 09/18/22 07:15 36.6 C 69 18 106/66 93 Nasal Cannula 2 09/18/22 03:15 36.7 C 69 18 95/74 L 95 Nasal Cannula Laboratory Results Abnormal lab results 09/17/22 09/17/22 09/17/22 Range/Units 13:58 16:06 20:49 PT (9.0-12.0) Seconds INR (0.9-1.1) Sodium 130 L (136-145) mmol/L Potassium 3.2 L D (3.5-5.1) mmol/L Chloride 94 L (98-107) mmol/L BUN 37 H (6-23) mg/dl Creatinine 2.06 H (0.6-1.4) mg/dl BUN/Creatinine Ratio (10-20) Glucose (70-99(Fasting)) mg/dl POC Glucose 164 H 180 H (70-99) mg/dl Fasting Glucose 190 H (70-99) mg/dl Calcium 8.4 L (8.5-10.1) mg/dl Total Bilirubin (0.2-1.0) mg/dl Alkaline Phosphatase (34-104) U/L 09/18/22 09/18/22 09/18/22 Range/Units 05:33 05:33 07:34 PT 29.6 H (9.0-12.0) Seconds INR 2.9 H (0.9-1.1) Sodium 130 L (136-145) mmol/L Potassium 3.1 L (3.5-5.1) mmol/L Chloride 96 L (98-107) mmol/L BUN 52 H (6-23) mg/dl Creatinine 2.14 H (0.6-1.4) mg/dl BUN/Creatinine Ratio 24.3 H (10-20) Glucose 144 H (70-99(Fasting)) mg/dl POC Glucose 145 H (70-99) mg/dl Fasting Glucose (70-99) mg/dl Calcium 8.1 L (8.5-10.1) mg/dl Total Bilirubin 1.3 H (0.2-1.0) mg/dl Alkaline Phosphatase 120 H (34-104) U/L 09/18/22 Range/Units 11:15 PT (9.0-12.0) Seconds INR (0.9-1.1) Sodium (136-145) mmol/L Potassium (3.5-5.1) mmol/L Chloride (98-107) mmol/L BUN (6-23) mg/dl Creatinine (0.6-1.4) mg/dl BUN/Creatinine Ratio (10-20) Glucose (70-99(Fasting)) mg/dl POC Glucose 205 H (70-99) mg/dl Fasting Glucose (70-99) mg/dl Calcium (8.5-10.1) mg/dl Total Bilirubin (0.2-1.0) mg/dl Alkaline Phosphatase (34-104) U/L
[2022-09-18] MEDS ORDERED: POTASSIUM CHLORIDE CRTAB 20 MEQ TABCR PO STA (13:22)
--- NOTE | 2022-09-18 15:40 | Cardiology Progress Note ---
Date of Service September 18, 2022 Assessment & Plan (1) Paroxysmal ventricular fibrillation: (2) CHF (congestive heart failure): (3) Implantable cardioverter-defibrillator discharge: (4) Ischemic cardiomyopathy: Plan Patient is a complex 72-year-old male with underlying history of ischemic cardiomyopathy with moderate left dysfunction, class 3+ congestive heart failure on appropriate medical therapies including metoprolol succinate, Entresto, diuretics Prior history of ventricular fibrillation with indwelling pacer defibrillator on chronic amiodarone therapy Presents now with VT VF with appropriate device activation and return to baseline rhythm Possibly precipitated by hypokalemia and mild congestive heart failure Plan: Continue IV amiodarone additional 24 hours Continue to supplement potassium and when repleted resume diuretics We will formally review pacer defibrillator interrogation, optimize device function Echocardiogram without significant change from prior studies that we will review formally troponin likely elevated secondary to acute arrhythmia on presentation 09/17/2022 Clinically improved. No further arrhythmias We will transition amiodarone to oral 400 mg twice per day Supplement potassium with patient with high potassium demand Following review of TSH and BMP will reinitiate Bumex at lower dosing. Repeat chest x-ray in a.m. 09/18/2022 Slow but steady improvement but still with volume overload by x-ray question und erlying interstitial lung disease given chronic amiodarone usage Will resume Bumex at reduced dose 2 mg twice per day given Increase potassium supplement to 40 4 times daily Continue spironolactone Amiodarone at 400 mg twice per day until discharge then once per day Admission and Anticipated Discharge Date Admission Date: September 15, 2022 Subjective Patient seen and examined, chart, medications, telemetry reviewed Looks substantially improved this morning No further ventricular arrhythmias Still hypokalemic but no signs of volume overload or fluid retention No dizziness or lightheadedness with patient sitting out of bed in chair Chest x-ray still with right pleural effusion and edema but no jugular venous distention or lower extremity edema. More comfortable and oxygenating well Review of Systems Review of Systems: All systems reviewed & are unremarkable except as noted in Subjective Physical Exam Constitutional: no acute distress Eyes: PERRL, conjunctivae normal, anicteric sclerae Neck: trachea midline, no thyromegaly Respiratory: Mild blunting of the bases of the right lung otherwise Cardiovascular: Heart Sounds: normal S1 and normal S2 Vessels: no JVD Extremities: no edema Chest (Breasts): Chest: + pacemaker Gastrointestinal (Abdomen): normal bowel sounds, soft, nontender, no hepatosplenomegaly Results & Data ([facility]) Vital Signs (Past 12 Hours) Vital Signs Temp Pulse Resp BP Pulse Ox O2 Del Method O2 Flow Rate 09/18/22 15:30 Nasal Cannula 2 09/18/22 12:42 36.6 C 71 14 112/70 94 Nasal Cannula 2 09/18/22 07:15 36.6 C 69 18 106/66 93 Nasal Cannula 2 Laboratory Results Laboratory Results - last 24 hr 09/17/22 09/17/22 09/18/22 16:06 20:49 05:33 PT 29.6 H INR 2.9 H Sodium Potassium Chloride Carbon Dioxide Anion Gap BUN Creatinine Est Cr Clr Drug Dosing Est GFR ( Amer) Est GFR (Non-Af Amer) BUN/Creatinine Ratio Glucose POC Glucose 164 H 180 H Calcium Phosphorus Magnesium Total Bilirubin AST ALT Alkaline Phosphatase Total Protein Albumin Globulin Albumin/Globulin Ratio 09/18/22 09/18/22 09/18/22 05:33 07:34 11:15 PT INR Sodium 130 L Potassium 3.1 L Chloride 96 L Carbon Dioxide 23 Anion Gap 11 BUN 52 H Creatinine 2.14 H Est Cr Clr Drug Dosing 35.3 Est GFR ( Amer) 35.1 Est GFR (Non-Af Amer) 30.3 BUN/Creatinine Ratio 24.3 H Glucose 144 H POC Glucose 145 H 205 H Calcium 8.1 L Phosphorus 4.2 D Magnesium 2.4 Total Bilirubin 1.3 H AST 22 ALT 17 Alkaline Phosphatase 120 H Total Protein 7.2 Albumin 3.6 Globulin 3.6 Albumin/Globulin Ratio 1.0
[2022-09-18] MEDS ORDERED: WARFARIN SOD 2.5 MG TAB PO SCH (16:00)
[2022-09-18] MEDS: BUMETANIDE 1 MG TAB PO SCH (17:10)
[2022-09-18] MEDS: ATORVASTATIN 40 MG TAB PO SCH (20:39)
[2022-09-18] MEDS: traZODone HCL 50 MG TAB PO SCH (21:48)
[2022-09-19] MEDS: LEVOTHYROXINE SODIUM 100 MCG TABLET PO SCH (05:42)
[2022-09-19 06:51] LABS: Hematocrit (blood only) 32.2 % (42.0-52.0); Hemoglobin 10.3 g/dl (14.0-18.0); Mean Corpuscular Hemoglobin 24.5 pg (25.0-34.0); Mean Corpuscular Volume 76.5 fL (80.0-100.0); Mean Platelet Volume 9.4 fL (9.4-12.4); Platelet Count 195 K/uL (130-400); RDW Coefficient of Variation 20.2 % (11.5-14.5); RDW Standard Deviation 55.4 fL (36.4-46.3); Red Blood Count 4.21 M/uL (4.70-6.10); White Blood Count 6.62 K/ul (4.8-10.8)
[2022-09-19 07:49] LABS: INR 2.3 (0.9-1.1)
[2022-09-19 07:58] LABS: Albumin Level 3.6 gm/dl (3.4-5.0); Bilirubin,Total 1.1 mg/dl (0.2-1.0); Calcium 8.6 mg/dl (8.5-10.1); Potassium 3.7 mmol/L (3.5-5.1)
[2022-09-19 08:04] LABS: Albumin Globulin Ratio 0.9 (0.9-2); BUN Creatinine Ratio 26.3 (10-20); Creatinine Clr Calc Pharmacy 34.8 ml/min; Est GFR (African American) 33.2 ml/min; Est GFR (Non-African American) 28.6 ml/min; Globulin 3.8 gm/dl (2.5-4.0); Total Protein 7.4 gm/dl (6.0-8.3)
[2022-09-19] MEDS: LANTUS PER UNIT CHARGE SQ SCH (08:53)
[2022-09-19] MEDS: BUMETANIDE 1 MG TAB PO SCH (08:54)
[2022-09-19] MEDS: AMIODARONE 200 MG TAB PO SCH (08:54)
[2022-09-19] MEDS: FAMOTIDINE 20 MG TAB PO SCH (08:54)
[2022-09-19] MEDS: INSULIN ASPART PER UNIT SC SCH ×2 (08:54→11:55)
[2022-09-19] MEDS: POTASSIUM CHLORIDE CRTAB 20 MEQ TABCR PO SCH ×2 (08:55→13:09)
[2022-09-19] MEDS: ASPIRIN 81 MG ECTAB PO SCH (08:55)
[2022-09-19] MEDS: METOPROLOL SUCC 50MG EXT REL TAB PO SCH (08:55)
[2022-09-19] MEDS: SERTRALINE HCL 100 MG TABLET PO SCH (08:56)
[2022-09-19] MEDS: SPIRONOLACTONE 100 MG TAB PO SCH (08:56)
[2022-09-19] MEDS: VALSARTAN/SACUBITRIL 26/24MG TAB PO SCH (08:56)
--- NOTE | 2022-09-19 12:55 | Discharge Summary ---
Discharge Summary Date of Service September 19, 2022 Notes For Next Care Provider Needs follow up with Cardiology Needs BMP on 09/21/22 to monitor hypokalemia. May need regular checks afterwards Follow up recovery at rehab Medication Changes From Visit Bumex reduced to 2mg twice a day Potassium chloride increased to 40mgEq QID Amiodarone increased to 400mg daily Admission HPI Per Admitting Provider History obtained from patient, family, and records. Medical history significant for chronic systolic heart failure secondary to ischemic cardiomyopathy status post CRTD (EF 30-34% TTE 2021), history of ventricular fibrillation, CAD status post CABG/stent, PVD, A-fib on Coumadin, hypertension, hyperlipidemia, DM2 insulin requiring, PATIENCE on BiPAP, CRI (baseline creatinine 1.8), stage colon cancer status post polyp resection, hypothyroidism, chronic anemia (baseline hemoglobin of 10), past tobacco abuse. Last confinement [facility] May 2022 for decompensated heart failure. Patient seen at [facility] meal cook office last month for follow-up visit. Patient mildly/moderately hypervolemic although weight stable as per note. Bumex dose increased to 6 mg twice daily to 4 mg twice daily dosing. Patient noted by family to be unresponsive today. Transient shaking of both upper extremities lasting 20 seconds. No tongue biting, drooling, or incontinence. Patient denies chest pain, SOB. Episode similar to ICD shock sometime ago. Patient never feels shocks as per . Mild headache symptoms. Patient compliant with home medications. Patient brought to the ER for evaluation. Ventricular fibrillation noted on the monitor. Patient transiently unresponsive. Patient ICD shock noted. Patient subsequently woke up. IV amiodarone infusion initiated at the ER. 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 Admission Exam Per Admitting Provider GENERAL: Comfortable, pleasant, obese, no respiratory distress SKIN: Pallor, warm HEENT: Bespectacled, pale palpebral conjunctivae, no ptosis, moist buccal mucosa NECK : Supple, short neck, no tenderness CHEST : Decreased breath sounds, no tenderness HEART : RRR, systolic murmur ABDOMEN: Some distention, nontender EXTREMITIES : Minimal LE swelling, no LE tenderness, no other conspicuous deformities noted NEUROLOGIC : Coherent, no facial asymmetry, no other gross focality Principal Dx & Hospital Course #1 = Principal Diagnosis (1) Unresponsive: Secondary to Ventricular fibrillation With appropriate ICD shocks Possibly from hypokalemia following increase in diuretic regimen last month following outpatient cardiology visit Troponin elevation secondary to ICD shock in the setting of baseline kidney dysfunction Patient has chronic systolic heart failure secondary to ischemic cardiomyopathy status post CRTD (EF 30-34% TTE 2021), CAD status post CABG/stent/PVD Potassium was 2.3 on presentation Was initially managed in ICU Diuretic was held and was aggressively repleted Was comanaged with Shipping/Receiving Clerk Patient was placed on IV amiodarone initially and later transitioned to oral Hypokalemia resolved. K is 3.7 today Home potassium increased to 40mEq QID Bumex reduced to 2mg BID Amiodarone increased to 400mg daily Continue home entresto, toprol XL Continue home statin A-fib on Coumadin INR is therapeutic 2.3 today Continue home warfarin and follow anticoagulation clinic DM2 Recent hemoglobin A1c of 13.2 last April 2022 Better controlled now. Hemoglobin A1c on 09/16/22 now 7 Continue home antidiabetics PATIENCE on BiPAP Hypoxia Currently on nasal cannula 1-2L/min being weaned down Not on oxygen at home Continue weaning off at rehab Colon cancer Status post polyp resection Continue follow up with [facility] oncologist Hypothyroidism Recent outpatient TSH within normal limits Continue levothyroxine Chronic anemia Hb stable Patient discharged to [facility] for rehab Discharge Exam Constitutional + well hydrated and + obese; no acute distress Eyes PERRL, conjunctivae normal, anicteric sclerae ENMT external ear and nose normal, oropharynx normal Respiratory normal respiratory effort; no respiratory distress Auscultation: + diminished lung sounds Cardiovascular Rate/Rhythm: regular rate and regular rhythm S1 S2 Gastrointestinal (Abdomen) normal bowel sounds, soft, nontender, no hepatosplenomegaly Neurologic PERRL, EOMI, accommodation nl, no face palsy, no dysarthria Psychiatric A+Ox3, euthymic affect Updated Medication List Medication Instructions Recorded Confirmed Type acetaminophen 325 mg tablet 650 mg PO Q6 PRN Pain 09/15/22 09/15/22 History (Tylenol) aspirin 81 mg tablet,delayed 81 mg PO DAILY 09/15/22 09/15/22 History release atorvastatin 40 mg tablet 40 mg PO HS 09/15/22 09/15/22 History cholecalciferol (vitamin D3) 1,250 50,000 mcg PO WK 09/15/22 09/15/22 History mcg (50,000 unit) tablet empagliflozin 10 mg tablet 10 mg PO QAM 09/15/22 09/15/22 History (Jardiance) hydrocodone 5 mg-acetaminophen 325 1 tab PO Q6 PRN Pain 09/15/22 09/15/22 History mg tablet insulin glargine 100 unit/mL 35 unit subcut QAM 09/15/22 09/15/22 History subcutaneous solution insulin lispro 100 unit/mL 10 unit subcut TIDM 09/15/22 09/15/22 History subcutaneous solution (Humalog U-100 Insulin) levothyroxine 100 mcg tablet 100 mcg PO DAILY 09/15/22 09/15/22 History metolazone 2.5 mg tablet 2.5 mg PO 2XWK 09/15/22 09/15/22 History metoprolol succinate 100 mg 100 mg PO QAM 09/15/22 09/15/22 History tablet,extended release 24 hr nitroglycerin 0.4 mg sublingual 0.4 mg sublingual DIRECTED PRN 09/15/22 09/15/22 History tablet (Nitrostat) Chest Pain sacubitril 24 mg-valsartan 26 mg 1 tab PO AMHS 09/15/22 09/15/22 History tablet (Entresto) sertraline 100 mg tablet 100 mg PO QAM 09/15/22 09/15/22 History spironolactone 50 mg tablet 100 mg PO QAM 09/15/22 09/15/22 History trazodone 50 mg tablet 50 mg PO HS 09/15/22 09/15/22 History warfarin 5 mg tablet 2.5 mg PO SUTUTHSA 09/15/22 09/15/22 History warfarin 5 mg tablet 5 mg PO MOWEFR 09/15/22 09/15/22 History amiodarone 200 mg tablet 400 mg PO DAILY #60 tabs 09/19/22 Rx bumetanide 2 mg tablet 2 mg PO BID #60 tabs 09/19/22 09/15/22 Rx potassium chloride 20 mEq 40 meq PO QID #120 tabs 09/19/22 09/15/22 Rx tablet,extended release(part/cryst) Hospital Stay Data Consultations 09/15/22 21:17 ED Decision to Admit Stat 09/15/22 22:55 Consult Cardiology Routine 09/15/22 23:29 Consult Optical Advisor Routine Diagnostic Imagining Performed 09/15/22 20:17 CT head/brain wo con Urgent Pending Results Patient Have Any Pending Studies at Discharge: No Discharge Instructions Given to Patient (Per Discharging Provider) Mr Cain You came to the hospital after found unresponsive. Evaluation noted you had VFib with ICD shock. You also had very low potassium level. This was repleted. Your diuretic (bumex) was reduced to 2mg twice a day and your potassium chloride increased to 40mEq four times a day. Your amiodarone was increased from 300mg daily to 400mg daily. You are being discharged to [facility]. Please ensure labs (Basic metabolic panel) on Wednesday09/21/22 at rehab. Please ensure follow up with your Shipping/Receiving Clerk and your Primary Doctor. It was a pleasure taking care of you. Total Time Total Time Spent Total Time Spent (In Minutes): 50 Total Time Includes: Examination of the Patient, Discharge Planning, Medication Reconciliation and Communication With Other Providers
--- NOTE | 2022-09-19 15:18 | Cardiology Progress Note ---
Date of Service September 19, 2022 Assessment & Plan (1) Paroxysmal ventricular fibrillation: (2) CHF (congestive heart failure): (3) Implantable cardioverter-defibrillator discharge: (4) Ischemic cardiomyopathy: Plan Patient is a complex 72-year-old male with underlying history of ischemic cardiomyopathy with moderate left dysfunction, class 3+ congestive heart failure on appropriate medical therapies including metoprolol succinate, Entresto, diuretics Prior history of ventricular fibrillation with indwelling pacer defibrillator on chronic amiodarone therapy Presents now with VT VF with appropriate device activation and return to baseline rhythm Possibly precipitated by hypokalemia and mild congestive heart failure Plan: Continue IV amiodarone additional 24 hours Continue to supplement potassium and when repleted resume diuretics We will formally review pacer defibrillator interrogation, optimize device function Echocardiogram without significant change from prior studies that we will review formally troponin likely elevated secondary to acute arrhythmia on presentation 09/17/2022 Clinically improved. No further arrhythmias We will transition amiodarone to oral 400 mg twice per day Supplement potassium with patient with high potassium demand Following review of TSH and BMP will reinitiate Bumex at lower dosing. Repeat chest x-ray in a.m. 09/18/2022 Slow but steady improvement but still with volume overload by x-ray question und erlying interstitial lung disease given chronic amiodarone usage Will resume Bumex at reduced dose 2 mg twice per day given Increase potassium supplement to 40 4 times daily Continue spironolactone Amiodarone at 400 mg twice per day until discharge then once per day 09/19/2022 Patient states breathing is back to baseline Okay to DC to rehab on current medications Will need repeat BMP within the week after discharge Admission and Anticipated Discharge Date Admission Date: September 15, 2022 Subjective Patient seen and examined. Chart reviewed. Telemetry reviewed. States he feels well and is anxious for discharge to rehab. Review of Systems Review of Systems: All systems reviewed & are unremarkable except as noted in HPI & below Physical Exam Physical Exam: General: Awake, alert and oriented x 3. No acute distress. HEENT: Normocephalic, atraumatic. Pupils equal, round and reactive to light and accommodation. Extraocular muscles are intact. Anicteric sclera. Moist mucous membranes. Neck: No JVD. No bruit. Cardiovascular: Regular. Positive S-4. Normal S-1 and S-2. No S-3. 3/6 holosystolic ejection murmur, left sternal border, mid-clavicular line with radiation to the axilla. No rubs. Pulmonary: Clear to auscultation bilaterally. No rales, rhonchi, or wheezing. Abdomen: Bowel sounds x 4, soft. No rebound, guarding or tenderness. No organomegaly. Extremities: No clubbing, cyanosis or edema. +2 pedal pulses bilaterally. Skin: Warm and dry. Results & Data ([facility]) Vital Signs (Past 12 Hours) Vital Signs Temp Pulse Pulse Resp BP BP Pulse Ox 09/19/22 13:53 36.7 C 72 79 20 125/70 107/66 90 09/19/22 11:06 36.7 C 79 20 107/66 90 09/19/22 08:00 09/19/22 07:46 37.0 C 70 24 125/70 95 09/19/22 03:20 36.6 C 72 18 150/83 H 95 O2 Del Method O2 Flow Rate 09/19/22 13:53 09/19/22 11:06 Nasal Cannula 1 09/19/22 08:00 Nasal Cannula 1.5 09/19/22 07:46 Nasal Cannula 1.5 09/19/22 03:20 Nasal Cannula 1
--- NOTE | 2022-09-22 12:30 | Coding Query ---
CODING QUERY To promote full compliance with coding requirements relating to patient care, provider participation is requested in all cases of burlap spreader uncertainty. Please assist us with the question(s) below: Coding Question(s): Please specify below, in your clinical opinion, the diagnosis most responsible for occasioning the inpatient admission: ( ) Hypokalemia ( ) Ventricular fibrillation ( ) Other: Please Specify:_Ventricular fibrillation, which could have been precipitated by hypokalemia Physician's Response(s): Thank you Sheree Rai Principal Diagnosis: "that condition established after study, to be chiefly responsible for occasioning the admission of the patient to the hospital for care." Co-Existing Principal Diagnosis: "when two or more diagnoses equally meet the criteria for principal diagnosis as determined by the circumstances of admission, diagnostic work up, and/or therapy provided, and the Alphabetic Index, Tabular List, or another coding guideline does not provide sequencing direction, any one of the diagnoses may be sequenced first." "When the physician has documented what appears to be a current diagnosis in the body of the record, but has not included the diagnosis in the final diagnostic statement, the physician should be asked whether the diagnosis should be added." ([facility] 2 QTR90. p3-4) SHAMAR
--- NOTE | 2022-09-25 07:28 | Coding Query ---
CODING QUERY To promote full compliance with coding requirements relating to patient care, provider participation is requested in all cases of chief enterprise architect uncertainty. Please assist us with the question(s) below: Coding Question(s): The 09/16 Cardiology Consultation documents CHF and documents, "Presents now with VT VF with appropriate device activation and return to baseline rhythm Possibly precipitated by hypokalemia and mild congestive heart failure", and the H&P documents, "chronic systolic heart failure secondary to ischemic cardiomyopathy status post CRTD (EF 30-34% TTE 2021), some congestion on imaging although patient without symptoms", and, "Patient mildly/moderately hypervolemic although weight stable as per note. Bumex dose increased to 6 mg twice daily to 4 mg twice daily dosing", and the 09/16 Critical Care Consultation documents, "Chest x-ray with pulmonary edema likely from defibrillation/CHF. We will hold on further diuresis at this time given potassium until this is repleted". Please specify below, in your clinical opinion, the mild congestive heart failure that possibly precipitated the VT VF: (x ) most likely Chronic Systolic Heart Failure ( ) most likely Other Specificity of mild congestive heart failure. Please Specify Physician's Response(s): Thank you Sheree Rai Principal Diagnosis: "that condition established after study, to be chiefly responsible for occasioning the admission of the patient to the hospital for care." Co-Existing Principal Diagnosis: "when two or more diagnoses equally meet the criteria for principal diagnosis as determined by the circumstances of admission, diagnostic work up, and/or therapy provided, and the Alphabetic Index, Tabular List, or another coding guideline does not provide sequencing direction, any one of the diagnoses may be sequenced first." "When the physician has documented what appears to be a current diagnosis in the body of the record, but has not included the diagnosis in the final diagnostic statement, the physician should be asked whether the diagnosis should be added." ([facility] 2 QTR90. p3-4) SAJID
== END 2022-09-19 15:08 | DRG 309 ==
LOC: ED 19:46 → 1E 22:51 → 2E 09-17 21:33